=== PATIENT | male | born 1970 | race Caucasian/White ===

== ENCOUNTER 2017-11-22 12:10 | Emergency (ER) | payer OTHER ==
--- OUTSIDE RECORDS SUMMARY | 2017-11-22 12:16 | XMS REPORT ---
:1970 External Reference #:[id number] Author Organization [email or web address] Address [address] [place] [address] [place] [address] Phone [phone] Care Team Providers Name Role Phone Toney Carballo MD Primary Care Physician Unavailable Payers Type Date Identification Numbers Payment Provider Subscriber Commercial Policy Number: [id number] [facility] PayID: [id number] [address] [place] [address] Problems Date Description Provider Status Onset: 12/17/2015 Localized, primary osteoarthritis Kayleigh To MD Active Onset: 12/17/2015 Knee joint effusion Kayleigh To MD Active Family History Date Family Member(s) Problem(s) Comments General No Current Problems General Colitis Social History Type Date Description Comments Lives With Family ETOH Use Denies alcohol use Smoking Patient has never smoked Exercise Type/Frequency Exercises regularly General Hx 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 He is on his feet a lot at the lab and if he runs around a lot his knee gets stiff Allergies, Adverse Reactions, Alerts Date Description Reaction Status Severity Comments 06/30/2015 Penicillin rash active Medications Medication Date Status Form Strength Qnty SIG Indications Ordering Provider Diclofenac Active Tablets DR 75mg 60tabs take 1 by Kayleigh Sun 018 mouth MD Yousuf twice a day as needed for pain Celecoxib Active Capsules 100mg 60caps Take One Kayleigh 016 Capsule By MD Yousuf Mouth Twice A Day With Food Voltaren Active Gel 1% 200gm apply 2 M25.461 Kayleigh 016 grams MD Yousuf twice daily as needed for pain to the knee Omeprazole Active Capsules 20mg 1 by mouth Unknown 000 DR every day as needed Allergy Active Tablets prn Unknown Medication 000 Celecoxib Hx Capsules 200mg 60caps take 1 tab M25.461 Zaneb 016 - with food MD Yousuf twice a 016 day Doxycycline Hx Tablets 100mg 60tabs 1 tab by M25.461 Sage D. Hyclate 016 - mouth [place], twice a M.D. 016 day with food Keeley Hx Tablets 180mg 1 by mouth Unknown Allergy 000 - every day 016 Ibuprofen Hx Capsules 200mg as needed Unknown 000 - 016 Medrol (Rex) Hx Tablets 4mg as Unknown 000 - directed 016 Aleve Hx Capsules 220mg as needed Unknown 000 - 016 Zantac Hx Tablets 150mg 1 by mouth Unknown 000 - every day as needed 016 Celecoxib Hx Capsules 100mg 60caps Take One Ty 000 - Capsule By Nasrin, Mouth M.D. 016 Twice A Day With Food as Needed For Pain Medications Administered in Office Medication Date Status Form Strength Qnty SIG Indications Ordering Provider Injection 10/18/ Administered Injection Zaneb Hyaluronan Or 2017 MD Andres To, Euflexxa Per Dose Injection 10/11/ Administered Injection Zaneb Hyaluronan Or 2017 MD Yousuf Derivative, Euflexxa Per Dose Triamcinolone 08/28/ Administered Injection Zaneb (Kenalog) 2017 MD Yousuf Triamcinolone 07/03/ Administered Injection Zaneb (Kenalog) 2017 MD Yousuf Triamcinolone 08/12/ Administered Injection Zaneb (Kenalog) 2015 MD Yousuf Vital Signs Date Vital Result Comment 10/25/2017 Height 66 inches 5'6" Weight 137.00 lb BP Systolic 124 mmHg BP Diastolic 84 mmHg Respiratory Rate 18 /min Pain Level 0 BMI (Body Mass Index) 22.1 kg/m2 10/18/2017 Height 66 inches 5'6" Weight 137.00 lb BP Systolic 128 mmHg BP Diastolic 68 mmHg Respiratory Rate 18 /min Pain Level 0 BMI (Body Mass Index) 22.1 kg/m2 10/11/2017 Height 66 inches 5'6" Weight 137.00 lb Heart Rate 50 /min BP Systolic Sitting 96 mmHg BP Diastolic Sitting 70 mmHg Respiratory Rate 16 /min Pain Level 7 BMI (Body Mass Index) 22.1 kg/m2 08/28/2017 Height 66 inches 5'6" Weight 137.00 lb BP Systolic Sitting 130 mmHg BP Diastolic Sitting 70 mmHg Respiratory Rate 16 /min Body Temperature 97.3 F Pain Level 9 BMI (Body Mass Index) 22.1 kg/m2 07/03/2017 Height 66 inches 5'6" Weight 140.00 lb BP Systolic 118 mmHg BP Diastolic 70 mmHg Respiratory Rate 18 /min Pain Level 0 BMI (Body Mass Index) 22.6 kg/m2 12/17/2015 Height 66 inches 5'6" Weight 140.00 lb Respiratory Rate 16 /min Pain Level 6 BMI (Body Mass Index) 22.6 kg/m2 09/14/2015 Height 66 inches 5'6" Weight 140.00 lb Heart Rate 52 /min BP Systolic Sitting 110 mmHg BP Diastolic Sitting 68 mmHg Respiratory Rate 14 /min Body Temperature 97.4 F Pain Level 3 BMI (Body Mass Index) 22.6 kg/m2 08/19/2015 Height 66 inches 5'6" Weight 141.00 lb Heart Rate 54 /min BP Systolic Sitting 112 mmHg BP Diastolic Sitting 68 mmHg Body Temperature 97.6 F Pain Level 3 BMI (Body Mass Index) 22.8 kg/m2 08/13/2015 Height 66 inches 5'6" Weight 138.00 lb Heart Rate 60 /min BP Systolic Sitting 114 mmHg BP Diastolic Sitting 76 mmHg Respiratory Rate 16 /min Pain Level 9 with very specific movements BMI (Body Mass Index) 22.3 kg/m2 07/01/2015 Height 66 inches 5'6" Weight 138.00 lb Heart Rate 60 /min BP Systolic Sitting 110 mmHg BP Diastolic Sitting 64 mmHg Respiratory Rate 14 /min Body Temperature 97.6 F BMI (Body Mass Index) 22.3 kg/m2 Results Test Date Test Result H/L Range Note Laboratory test finding 08/28/2017 Mycobacterial Culture See Comment 1 , 2 Lyme Disease PCR 08/28/2017 Lyme Disease Source RIGHT KNEE 1 Tissue/Fluid B. burgdorferi PCR Negative Negative 1 B. mayonii PCR Negative Negative 1 B. garinii/B. afzellii PCR Negative Negative 1, 3 Laboratory test finding 08/28/2017 Anaerobic Culture SEE RESULT BELOW 1 , 4 Fungal Cult Other Sources SEE RESULT BELOW 1, 5 Body Fluid Cell Count 08/28/2017 Body Fluid Source Synovial Fluid 1 Body Fluid Appearance Cloudy 1 Body Fluid Color Yellow 1 Body Fluid Volume 2.0 mL 1 Body Fluid WBC 31359 /mcL 1, 6 Body Fluid RBC 2384 /mcL 1 Body Fluid Neutrophils 89 % 1 Body Fluid Lymph 7 % 1 Body Fluid [place] 4 % 1 Body Fluid Total Cells Counted 100 1 Body Fluid Comment (SEE NOTE) 1, 7 Fluid Reviewed By MD (SEE NOTE) 1, 8 Acid Fast Culture & 08/28/2017 Acid Fast Culture SEE RESULT 1, 9 Smear Smear BELOW Body Fluid C&S 08/28/2017 Body Fluid Cult SEE RESULT 1, 10 Gram Stain BELOW Laboratory test 08/28/2017 Body Fluid None Seen None Seen 1, 11 finding Crystals Laboratory test 08/19/2015 Creatine 259 U/L High 10-223 finding Kinase(CK) C Reactive Protein < 1.00 mg/L < 5.00 12 Cardiolipin Igg/Igm 08/19/2015 Phospholipid Ab IgM, S < 4.0 MPL 13 Phospholipid Ab IgG 4.7 GPL 14 Laboratory test finding 08/19/2015 Complement C3 122 mg/dL 75 - 175 15 Complement C4 36 mg/dL 14 - 40 16 Connective Tissue Panel 08/19/2015 Anti-Nuclear Antibody 1.4 U High 17 Cyclic Citrullinated Peptide <15.6 U 18 Interpretation See Comment 19 Comp Metabolic Panel 08/19/2015 Sodium 136 mmol/L 133-145 Potassium 3.9 mmol/L 3.5-5.0 Chloride 100 mmol/L Low 101-111 Co2 Carbon Dioxide 31 mmol/L 22-32 Anion Gap 5 mmol/L 2-11 Glucose 82 mg/dL 70-100 Blood Urea Nitrogen 15 mg/dL 6-24 Creatinine 0.93 mg/dL 0.67-1.17 BUN/Creatinine Ratio 16.1 8-20 Calcium 9.6 mg/dL 8.6-10.3 Total Protein 7.3 g/dL 6.4-8.9 Albumin 4.4 g/dL 3.2-5.2 Globulin 2.9 g/dL 2-4 Albumin/Globulin Ratio 1.5 1-3 Total Bilirubin 0.40 mg/dL 0.2-1.0 Alkaline Phosphatase 53 U/L 34-104 Alt 19 U/L 7-52 Ast 26 U/L 13-39 Egfr Non- 87.5 >60 Egfr 112.5 >60 20 Hla B27 08/19/2015 Hla B27 Positive 21 Hla B27 Interp See Comment 22 Lyme Western Blot 08/19/2015 Lyme Disease IgG Ab WB Negative Negative Lyme Disease IgG Bands Present p93, p66, p41, kDa Lyme Disease IgM Ab WB Negative Negative Lyme Disease IgM Bands Present No bands detecte <SEE NOTE> kDa 23 Lyme Disease Interpretation See Comment 24 Laboratory test finding 07/01/2015 Lyme Disease Serology Negative Negative 25 1 [id number] SOURCE: KNEE, RIGHT KNEE MYCOBACTERIAL CULTURE FINAL No growth after 42 days of incubation. Test Performed by: [facility] - [address] [address] 3 ADDITIONAL INFORMATION This test was developed and its performance characteristics determined by [facility] in a manner consistent with CLIA requirements. This test has not been cleared or approved by the U.S. Food and Drug Administration. Test Performed by: [facility] - [address] [address] 4 SEE RESULT BELOW Name: SEBASTIAN CASEY : [address]: Kayleigh To MD Acct: [id number] Unit: [id number] AGE: 47 Location: [facility] Re08/28/17 SEX: M Status: REG REF SPEC: [id number] INGE: 08/28/17-[address] [facility] [address]: Kayleigh To MD REQ: [id number] RECD: 08/28/17 STATUS: COMP _ SOURCE: BODY FLUID SPDESC:KNEE RIGHT ORDERED: Anaerobic Cult, AFB Cult Smear COMMENTS: [id number] Procedure Result Reported Site Anaerobic Culture Final 09/01/17- 1021 ML No Growth Day 4 Acid Fast Stain - Direct Final 08/28/17- 1428 ML AFB Smear Result No Acid Fast Bacillus Present (Negative) Preparation By Cytospin Smear Due to limited sensitivity of the smear, results should be used as an adjunct in evaluating the patient's status. This specimen has been sent to referral laboratory for mycobacterial culture. * ML - Main Lab . END OF REPORT DEPARTMENT OF PATHOLOGY, [address] [place] [address] Iker Zavala M.D. Director [facility] # [id number] 5 SEE RESULT BELOW Name: JACINTOSEBASTIAN : [address]: Kayleigh To MD Acct: [id number] Unit: [id number] AGE: 47 Location: [facility] Re08/28/17 SEX: M Status: REG REF SPEC: [id number] INGE: 08/28/17-[address] [facility] [address]: Kayleigh To MD REQ: [id number] RECD: 08/28/17 STATUS: COMP _ SOURCE: MISC SOURC SPDESC:KNEE RIGHT ORDERED: Fungal - Other COMMENTS: [id number] Procedure Result Reported Site Fungal Cult - Other Sources Final 09/24/17- 1349 ML No Growth Week 4 * ML - Main Lab . END OF REPORT DEPARTMENT OF PATHOLOGY, [address] [place] [address] Iker Zavala M.D. Director [facility] # [id number] 6 -- REFERENCE VALUE -- Synovial: <150/mcL Peritoneal: <500/mcL Pleural: <500/mcL Pericardial: <500/mcL 7 Differential performed from push smear 8 Acute inflammation present. Recommend correlation with microbiology studies. Reviewed by Dr. Zavala 9 SEE RESULT BELOW Name: JACINTOSEBASTIAN : [address]: Kayleigh To MD Acct: [id number] Unit: [id number] AGE: 47 Location: [facility] Re08/28/17 SEX: M Status: REG REF SPEC: [id number] INGE: 08/28/17-[address] [facility] [address]: Kayleigh To MD REQ: [id number] RECD: 08/28/17 STATUS: RES _ SOURCE: BODY FLUID SPDESC:KNEE RIGHT ORDERED: Anaerobic Cult, AFB Cult Smear COMMENTS: [id number] Procedure Result Reported Site Anaerobic Culture PENDING Acid Fast Stain - Direct Final 08/28/17- 1428 ML AFB Smear Result No Acid Fast Bacillus Present (Negative) Preparation By Cytospin Smear Due to limited sensitivity of the smear, results should be used as an adjunct in evaluating the patient's status. This specimen has been sent to referral laboratory for mycobacterial culture. * ML - Main Lab . END OF REPORT DEPARTMENT OF PATHOLOGY, [address] [place] [address] Iker Zavala M.D. Director [facility] # [id number] 10 SEE RESULT BELOW Name: JACINTOSEBASTIAN : [address]: Kayleigh To MD Acct: [id number] Unit: [id number] AGE: 47 Location: [facility] Re08/28/17 SEX: M Status: REG REF SPEC: [id number] IGNE: 08/28/17-[address]: Kayleigh To MD REQ: [id number] RECD: 08/28/17 STATUS: COMP _ SOURCE: JOINT FLUI SPDESC:KNEE RIGHT ORDERED: BF Cult/GS, MRSA/SA SSTI COMMENTS: [id number] Procedure Result Reported Site Body Fluid Gram Stain Final 08/28/17- 1339 ML 4+ Neutrophils No Organisms Seen Preparation By Cytospin Smear Body Fluid Culture Final 09/01/17- 1022 ML No Growth Day 4 MRSA/S. aureus SSTI PCR Final 08/28/17- 1450 ML Organism 1 MRSA NEGATIVE Organism 2 S.AUREUS NEGATIVE * ML - Main Lab . END OF REPORT DEPARTMENT OF PATHOLOGY, [address] [place] [address] Iker Zavala M.D. Director [facility] # [id number] 11 [id number] What is the body fluid source?: Synovial (Joint) Fluid 12 Acute inflammation: >10.00 13 REFERENCE VALUE <10.0 (Negative) 14 REFERENCE VALUE <10.0 (Negative) Test Performed by: [facility] [place] [address] Environmental Science Professor: Augusto Valentine II, M.D., Ph.D. 15 Test Performed by: [facility] [place] [address] Environmental Science Professor: Augusto Valentine II, M.D., Ph.D. 16 Test Performed by: [facility] [place] [address] Environmental Science Professor: Augusto Valentine II, M.D., Ph.D. 17 Interpretation: Weak Positive (1.1-2.9) REFERENCE VALUE <=1.0 (Negative) 18 REFERENCE VALUE <20.0 (Negative) 19 Tests for antibodies to dsDNA and [place] antigens are not performed automatically unless the TAMERA result is > or= 3.0 U. Studies performed at [facility] indicate that positive TAMERA results <3.0 U are rarely accompanied by positive second order tests. Test Performed by: [facility] [place] [address] Environmental Science Professor: Augusto Valentine II, M.D., Ph.D. 20 Because ethnic data is not always readily available, this report includes an eGFR for both -Americans and non- Americans. The National Kidney Disease Education Program (NKDEP) does not endorse the use of the MDRD equation for patients that are not between the ages of 18 and 70, are , have extremes of body size, muscle mass, or nutritional status, or are non- or non-. According to the National Kidney Foundation, irrespective of diagnosis, the stage of the disease is based on the level of kidney function: Stage Description GFR(mL/min/1.73 m(2)) 1 Kidney damage with normal or decreased GFR 90 2 Kidney damage with mild decrease in GFR 60-89 3 Moderate decrease in GFR 30-59 4 Severe decrease in GFR 15-29 5 Kidney failure <15 (or dialysis) 21 REFERENCE VALUE Not Applicable 22 HLA-B27 antigen was detected. Approximately 8% of the normal population carries the HLA-B27 antigen. HLA-B27 is present in approximately 89% of patients with ankylosing spondylitis, 79% of patients with Jennifer's syndrome and 42% of patients with juvenile rheumatoid arthritis. However, lacking other data, it is not diagnostic for these disorders. This test does not differentiate B27 alleles. i.e. B*27:05, B*27:06, etc. ADDITIONAL INFORMATION Method: Flow Cytometry Performing Laboratory CLIA# [id number] Test Performed by: [place] [address] Environmental Science Professor: Augusto Valentine II, M.D., Ph.D. 23 No bands detected 24 Specific serologic response to B. burgdorferi infection is not detected, but cannot rule out early infection during which low or undetectable antibody levels to B. burgdorferi may be present. If clinically indicated, a new serum specimen should be submitted in 7-14 days. ADDITIONAL INFORMATION CDC criteria require >=5 bands for IgG or >=2 bands for IgM for the Immunoblot to be considered positive. Bands (e.g.,p41) may be detected in patients without Lyme disease, and patterns not meeting the CDC criteria should be interpreted with caution. Immunoblot should be ordered only on specimens that are positive or equivocal by a FDA-licensed Lyme disease antibody screening test (e.g., EIA). Test Performed by: [place] [address] Environmental Science Professor: Augusto Valentine II, M.D., Ph.D. 25 Serologic response to B. burgdorferi infection is not detected, but cannot rule out early infection during which low or undetectable antibody levels to B. burgdorferi may be present. If clinically indicated, a new serum specimen should be submitted in 7-14 days. Test Performed by: [place] [address] Environmental Science Professor: Augusto Valentine II, M.D., Ph.D. Procedures Date CPT Code Description Status 10/18/2017 Inj/Aspir Major JT Or Bursa W/ US Completed 10/11/2017 Inj/Aspir Major JT Or Bursa W/ US Completed 08/28/2017 Inject/Drain Joint/Bursa Major W/O US Completed 07/03/2017 Inject/Drain Joint/Bursa Major W/O US Completed 08/13/2015 Inject/Drain Joint/Bursa Major W/O US Completed Encounters Type Date Location Provider CPT E/M Dx Office Visit 08/28/2017 8:15a [facility] [place] [address] M17.11 C.M.A. M25.461 Office Visit 07/03/2017 3:30p [facility] [place] [address] M17.11 C.M.A. M25.461 Office Visit 12/17/2015 8:00a [facility] [address] M25.461 C.M.A. M17.11 M22.8x1 Office Visit 09/14/2015 4:00p [facility] [place] [address] M25.461 Of Evgeny Bowen Z79.1 R76.0 M46.90 Office Visit 08/19/2015 3:00p [facility] [place] [address] M25.461 Of Evgeny Bowen M22.41 R76.0 Z79.1 Office Visit 08/13/2015 10:00[place] [facility] [place] [address] M22.41 C.M.A. M17.11 Office Visit 07/01/2015 2:00p [facility] Sage Montalvo [address] M25.461 Infectious Diseases Alison Ryan. Plan of Care 10/18/2017 - Kayleigh To MDM17.11 Unilateral primary osteoarthritis, right kneeNew Xrays:Inj/Aspir Major JT Or Bursa W/ USFollow up:Follow up: 1 weekM25.461 Effusion, right knee
[2017-11-22 12:19] VITALS: BP 128/81
--- NOTE | 2017-11-22 12:20 | UC ---
Head Injury HPI - HPI Summary HPI Summary: 47 yo male presents with feeling "foggy". He tells me that yesterday morning around 1030 or 11 he was at work, a desk job, when he suddenly began to feel "confused". He tells me that he knew it was 11/21/17, but tried to write the date and wrote 11/17/17. Then he tried to correct himself and wrote 11/22/17. He began talking with his coworkers and felt "sluggish" and that he could think of the words he wanted to say, but could not say them. These symptoms lasted about a half hour and eventually improved. During this time he denies having a headache , dizziness, blurry vision, slurred speech, weakness, trouble moving limbs, SOB , or chest pain. Today he went to work and spoke to his boss who mentioned that pt might have had a "TIA" and advised him to be evaluated - prompting his visit to the . Today he tells me that he feels overall "foggy" and just "not right" , but has had no more episodes as above and continues to not have a headache, dizziness, blurry vision, weakness, trouble moving limbs, SOB, or chest pain. He took an 81mg aspirin this morning. He has no PMHx and says that he runs for at least an hour daily. Does have a fam hx of CVA and cardiac dz. - History Of Current Complaint Chief Complaint: UCGeneralIllness Stated Complaint: CONFUSION Hx Obtained From: Patient Onset/Duration: Sudden Onset Severity Currently: None Pain Intensity: 0 - Allergies/Home Medications Allergies/Adverse Reactions: Allergies Allergy/AdvReac Type Severity Reaction Status Date / Time No Known Allergies Allergy Verified 11/22/17 12:20 Home Medications: Home Medications celeCOXIB CAP* [Celebrex CAP*] 1 tab PO BID 11/22/17 [History Confirmed 11/22/17 ] PMH/Surg Hx/FS Hx/Imm Hx - Additional Past Medical History Additional PMH: None - Surgical History Surgical History: Yes Surgery Procedure, Year, and Place: rtshoulder ARTHROSCOPY. tonsils, rt wrist TENDON REPAIR - Family History Known Family History: Positive: Cardiac Disease, Hypertension, Other - CVA - Social History Occupation: Employed Full-time Lives: With Family Alcohol Use: None Substance Use Type: None Smoking Status (MU): Never Smoked Tobacco Review of Systems Constitutional: Negative Skin: Negative Eyes: Negative ENT: Negative Respiratory: Negative Cardiovascular: Negative Gastrointestinal: Negative Genitourinary: Negative Neurovascular: Negative Musculoskeletal: Negative Neurological: Other - Confusion. Fogginess. Aphasia Psychological: Negative All Other Systems Reviewed And Are Negative: Yes Physical Exam - Summary Physical Exam Summary: GENERAL: NAD. WDWN. No pain distress. SKIN: No rashes, sores, ulcers, masses, lesions. No clubbing or cyanosis. HEENT: Head: AT/NC Eyes: PERRLA. EOM intact. Conjunctiva clear without inflammation or discharge. Ears: Hearing grossly normal. TMs intact, no bulging, erythema, or edema. Nose: Nasal mucosa pink and moist. NTTP maxillary and frontal sinus. Throat: Posterior oropharynx without exudates, erythema, or tonsillar enlargement. Uvula midline. NECK: Supple. Nontender. No lymphadenopathy. CHEST: CTAB. No r/r/w. No accessory muscle use. Breathing comfortably and in no distress. CV: RRR. Without m/r/g. Pulses intact. Brisk cap refill. MSK: FROM in B/L UEs and LEs with symmetric strength. NEURO: A&Ox3. 3 word recall, remote, recent memory, ability to follow 2-step directions, and attention intact. CN: II: Peripheral haywood intact. Vision normal. III, IV, : EOMI. No nystagmus. PERRLA. V: Sensations intact and symmetric. Opens mouth and clenches teeth. VII: No facial asymmetry. Forehead wrinkles. Grins, shuts eyes, frowns, puffs cheeks. VIII: Hearing intact to finger rub. IX, X: Swallows and coughs. Uvula midline. XI: Shrugs shoulders. Turns head against resistance. XII: No tongue deviation. Tmarlq-lo-tbkl are intact. Gait with normal base. Romberg: maintains balance, no pronator drift. Normal speech. No facial drooping. PSYCH: Age appropriate behavior. Triage Information Reviewed: Yes Vital Signs: Initial Vital Signs Temp 98 F 11/22/17 12:15 Pulse 55 11/22/17 12:15 Resp 16 11/22/17 12:15 BP 128/81 11/22/17 12:15 Pulse Ox 100 11/22/17 12:15 Vital Signs Reviewed: Yes Head Injury Course/Dx - Course Course Of Treatment: It is possible that the pt experienced a TIA, but given that he is having some lasting "fogginess" and his family hx of CVA - I had advised him to be further evaluated in the ED for a more appropriate work up. He declined ambulance transfer and will drive himself. - Differential Dx/Diagnosis Provider Diagnoses: Altered Mental Status Discharge - Sign-Out/Discharge Documenting (check all that apply): Patient Departure All imaging exams completed and their final reports reviewed: No Studies - Discharge Plan Condition: Stable Disposition: HOME-RECOMMEND TO ED Referrals: Toney Carballo MD [Primary Care Provider] - Additional Instructions: Please go to the ER for further evaluation of your confusion and altered mental status that occurred yesterday - Billing Disposition and Condition Condition: STABLE Disposition: Home-Recommend to ED
== END 2017-11-22 12:39 | disposition home health service (06) ==
LOC: UCEAST 12:10
DX: R41.82 Altered mental status, unspecified (principal)
CPT/HCPCS: 99212; G0463

== ENCOUNTER → 2017-11-22 13:03 | Emergency (ER) | payer BC, OTHER ==
--- NOTE | 2017-11-22 16:45 | ED ---
Altered Mental Status - HPI Summary HPI Summary: This patient is a 47 year old M presenting to [facility] with a chief complaint of an AMS since 1100 yesterday. Pt states that yesterday while at work he began having some confusion, trouble answering questions, and states that he was thinking something but his hand was writing something else. He was sent home and slept for 3 hours, when he woke up he felt better but foggy, and he continued the rest of his night normally. When he woke up this morning he has a BIRD which is unusual for him, he also felt mentally foggy, and when he arrived at work they suggested he come to the ED. The patient rates the pain 0/10 in severity. Patient reports dizziness, recent stress in his life, trouble concentrating, and some visual disturbances. Patient denies trouble speaking and unsteady gait. Pt states that for the last month he has minor memory lapses. - History Of Current Complaint Chief Complaint: EDAltMentalStatus Stated Complaint: "FOGGY" FEELING Time Seen by Provider: 11/22/17 16:34 Hx Obtained From: Patient Onset/Duration: Still Present, Suddenly Timing: Constant, Intermittent Severity Initially: Moderate Severity Currently: Mild Character: Confusion - Allergies/Home Medications Allergies/Adverse Reactions: Allergies Allergy/AdvReac Type Severity Reaction Status Date / Time No Known Allergies Allergy Verified 11/22/17 12:20 Home Medications: Home Medications Omeprazole CAP* [Prilosec CAP* 20 MG] 20 mg PO DAILY 11/22/17 [History Confirmed 11/22/17] PMH/Surg Hx/FS Hx/Imm Hx Endocrine/Hematology History: Denies: Hx Diabetes, Hx Thyroid Disease Cardiovascular History: Denies: Hx Hypercholesterolemia, Hx Hypertension, Hx Pacemaker/ICD, Hx Peripheral Vascular Disease Respiratory History: Denies: Hx Asthma History: Denies: Hx Renal Disease Musculoskeletal History: Denies: Hx Arthritis, Hx Osteoporosis Sensory History: Denies: Hx Cataracts, Hx Contacts or Glasses, Hx Glaucoma, Hx Hearing Aid Opthamlomology History: Denies: Hx Cataracts, Hx Contacts or Glasses, Hx Glaucoma Neurological History: Denies: Hx Headaches, Hx Seizures, Hx Transient Ischemic Attacks (TIA) Psychiatric History: Denies: Hx Anxiety, Hx Depression, Hx Panic Disorder - Surgical History Surgery Procedure, Year, and Place: rtshoulder ARTHROSCOPY. tonsils, rt wrist TENDON REPAIR Infectious Disease History: No Infectious Disease History: Denies: Traveled Outside the [place] in Last 30 Days - Family History Known Family History: Positive: Cardiac Disease, Other - CVA - Social History Occupation: Employed Full-time Alcohol Use: None Substance Use Type: Reports: None Smoking Status (MU): Never Smoked Tobacco Review of Systems Positive: Other - visual disturbances Neurological: Other - dizziness, mental fogginess, trouble concentrating, confusion, Positive: Headache Positive: Other - stress All Other Systems Reviewed And Are Negative: Yes Physical Exam - Summary Physical Exam Summary: Appearance: Well-appearing, Well-nourished, lying in bed comfortably Skin: Warm, dry, no obvious rash Eyes: sclera anicteric, no conjunctival pallor ENT: mucous membranes moist, pharynx appears normal Neck: Supple, nontender Respiratory: Clear to auscultation, no signs of respiratory distress Cardiovascular: Normal S1, S2. No murmurs. Normal distal pulses in tibial and radial bilaterally. Abdomen: Soft, nontender, normal active bowel sounds present Musculoskeletal: Normal, Strength/ROM Intact Neurological: A&Ox3, awake and alert, mentation is normal, speech is fluent and appropriate Psychiatric: affect is normal, does not appear anxious or depressed GCS: 15 Triage Information Reviewed: Yes Vital Signs On Initial Exam: Initial Vitals Temp Pulse Resp BP Pulse Ox 97.7 F 55 17 112/77 99 11/22/17 13:21 11/22/17 13:21 11/22/17 13:21 11/22/17 13:21 11/22/17 13:21 Vital Signs Reviewed: Yes Diagnostics - Vital Signs Vital Signs Temp Pulse Resp BP Pulse Ox 11/22/17 13:21 97.7 F 55 17 112/77 99 - Laboratory Result Diagrams: 11/22/17 17:01 11/22/17 17:01 Lab Statement: Any lab studies that have been ordered have been reviewed, and results considered in the medical decision making process. - Radiology MRI Brain Radiology Interpretation Completed By: Radiologist - 1. No MR evidence of acute infarct. 2. Nonspecific T2/flair hyperintensities within the parietal and to a lesser degree the frontal periventricular white matter, as well as the bifrontal superior subcortical white matter and anterior right temporal subcortical white matter. Differential includes but is not limited to chronic small vessel ischemic change, demyelinating disease, and CADASIL. Consider further evaluation with post contrast MR sequences. 3. Partial opacification of right mastoid air cells. ED physician has reviewed this radiology report. - CT CT Brain CT Interpretation Completed By: Radiologist - Focus of hypoattenuation in the periventricular white matter adjacent to the lateral aspect of the right posterior ventricle could be due to microvascular disease or potentially a more acute focal infarction. If the patient is exhibiting focal neurologic deficits superior characterization can be made with an MRI of the brain. ED physician has reviewed this radiology report. - EKG 1734 Cardiac Rate: NL EKG Rhythm: Sinus Bradycardia - sinus bradycardia at 46 BPM, P waves, QRS complex, and T waves are within normal limits, T waves and intervals are normal , no ischemic changes. This is a normal EKG Altered Mental Statu Course/Dx - Course Assessment/Plan: This patient is a 47 year old M presenting to [facility] with a chief complaint of an AMS since 1100 yesterday. Pt states that yesterday while at work he began having some confusion, trouble answering questions, and states that he was thinking something but his hand was writing something else. He was sent home and slept for 3 hours, when he woke up he felt better but foggy, and he continued the rest of his night normally. When he woke up this morning he has a BIRD which is unusual for him, he also felt mentally foggy, and when he arrived at work they suggested he come to the ED. The patient rates the pain 0/ 10 in severity. Patient reports dizziness, recent stress in his life, trouble concentrating, and some visual disturbances. Patient denies trouble speaking and unsteady gait. Pt states that for the last month he has minor memory lapses. An EKG reveals sinus bradycardia at 46 BPM, P waves, QRS complex, and T waves are within normal limits, T waves and intervals are normal, no ischemic changes. This is a normal EKG. . CT Brain reveals, per radiologist, Focus of hypoattenuation in the periventricular white matter adjacent to the. lateral aspect of the right posterior ventricle could be due to microvascular disease or. potentially a more acute focal infarction. If the patient is exhibiting focal neurologic. deficits superior characterization can be made with an MRI of the brain. MRI Brain reveals, 1. No MR evidence of acute infarct. 2. Nonspecific T2/flair hyperintensities within the parietal and to a lesser. degree the frontal periventricular white matter, as well as the bifrontal. superior subcortical white matter and anterior right temporal subcortical white. matter. Differential includes but is not limited to chronic small vessel. ischemic change, demyelinating disease, and CADASIL. Consider further. evaluation with post contrast MR sequences. 3. Partial opacification of right mastoid air cells. Blood work obtained. We discussed patient care with Dr. Garcia and they recommended that the patient follow up as outpatient with neurology. Patient will be discharged. The patient is agreeable with this plan. - Diagnoses Provider Diagnoses: Weakness - Provider Notifications Discussed Care Of Patient With: Steven Garcia Time Discussed With Above Provider: 20:01 Instructed by Provider To: Other - We discussed patient care with Dr. Garcia and they recommended that the patient follow up as outpatient with neurology. Discharge - Sign-Out/Discharge Documenting (check all that apply): Patient Departure - Discharge Plan Condition: Good Disposition: HOME Referrals: Steven Garcia MD [Medical Doctor] - Additional Instructions: The MRI scan did exclude a stroke as a cause of your symptoms, but there are some subtle abnormalities on the MRI that can be seen in a number of different conditions. I spoke to Dr. Newton, our neurologist [facility], and he would like to see you in the office to examine you himself and plan further testing to get to a formal diagnosis. In the meantime I would not put any restrictions on your activity. If you develop new or worsening symptoms, we should see you back here sooner. - Billing Disposition and Condition Condition: GOOD Disposition: Home - Attestation Statements Document Initiated by Pattie: Yes Documenting Scribe: Chava Lyn Provider For Whom Pattie is Documenting (Include Credential): Valeriano Boyce MD Scribe Attestation: Chava Costello , scribed for Valeriano Boyce MD on 11/23/17 at 0852. Scribe Documentation Reviewed: Yes Provider Attestation: The documentation as recorded by the Chava florentino accurately reflects the service I personally performed and the decisions made by me, Valeriano Boyce MD
[2017-11-22 17:28] LABS: ABS Basophils 0 10^3/ul (0-0.2); ABS Eosinophils 0.1 10^3/ul (0-0.6); ABS Lymphocytes 2.1 10^3/ul (1.0-4.8); ABS Monocytes 0.4 10^3/ul (0-0.8); ABS Neutrophils 2.4 10^3/ul (1.5-7.7); ABS Nucleated RBC 0 10^3/ul; Eosinophil % 1.5 % (0-6); Hematocrit 45 % (42-52); Lymphocyte % 42.2 % (25-47); Mean Corpuscular HGB Conc 34 g/dl (31-36); Mean Corpuscular Hemoglobin 30 pg (27-31); Mean Corpuscular Volume 89 fL (80-94); Mean Platelet Volume 7.5 um3 (7.4-10.4); Nucleated Red Blood Cells % 0.3; Platelet Count 226 10^3/ul (150-450); Red Blood Count 5.02 10^6/ul (4.00-5.40); Red Cell Distribution Width 14 % (10.5-15); White Blood Count 5.1 10^3/ul (3.5-10.8)
--- NOTE | 2017-11-22 17:31 | RAD ---
INDICATION: "Foggy feeling" COMPARISON: None. TECHNIQUE: Contiguous axial sections of the brain were obtained from the skull base to the vertex without contrast. FINDINGS: The ventricles, cisterns and sulci are within normal limits. Adjacent to the posterior right ventricle (axial image 19 and coronal image 39) there is a focus of white matter periventricular hypoattenuation. Otherwise the robbins-white matter differentiation is adequately maintained and there is no sulcal effacement. No significant focal abnormality or mass effect is present. There is no evidence for intracranial hemorrhage. No significant focal osseous abnormality is present. The visualized portion of the paranasal sinuses appear clear. The mastoid air cells are well aerated bilaterally. IMPRESSION: Focus of hypoattenuation in the periventricular white matter adjacent to the lateral aspect of the right posterior ventricle could be due to microvascular disease or potentially a more acute focal infarction. If the patient is exhibiting focal neurologic deficits superior characterization can be made with an MRI of the brain.
[2017-11-22 17:37] LABS: INR 0.88 (0.77-1.02)
[2017-11-22 17:44] LABS: EGFR Non-African American 82.6 (>60)
--- NOTE | 2017-11-22 19:01 | RAD ---
EXAM: MR Head Without Intravenous Contrast CLINICAL HISTORY: 47 years old, male; Pain and signs and symptoms; Other: Lethargic, feeling of "fogginess"; Headache; Headache not specified; Patient HX: C/O fogginess, headache & lethargy w/ some memory problems; Additional info: Trouble concentrating, abnl CT brain TECHNIQUE: Magnetic resonance images of the head/brain without intravenous contrast in multiple planes. COMPARISON: No relevant prior studies available. FINDINGS: Brain: Focal nonspecific T2/FLAIR hyperintensities of the parietal and to a lesser degree the frontal periventricular white matter, as well as the bifrontal superior subcortical white matter, and anterior right temporal subcortical white matter. No intracranial hemorrhage or extra-axial fluid collection. No evidence of mass effect or midline shift. No restricted diffusion to suggest acute infarct. Ventricles: Prominence of the ventricles and sulci, most likely attributed to parenchymal volume loss. Bones/joints: Unremarkable. Sinuses: Unremarkable as visualized. No acute sinusitis. Mastoid air cells: Partial opacification of right mastoid air cells. Orbits: Unremarkable as visualized. IMPRESSION: 1. No MR evidence of acute infarct. 2. Nonspecific T2/flair hyperintensities within the parietal and to a lesser degree the frontal periventricular white matter, as well as the bifrontal superior subcortical white matter and anterior right temporal subcortical white matter. Differential includes but is not limited to chronic small vessel ischemic change, demyelinating disease, and CADASIL. Consider further evaluation with post contrast MR sequences. 3. Partial opacification of right mastoid air cells.
[2017-11-22 20:35] VITALS: BP 124/74
[2017-11-22 20:40] LABS: Urine Appearance Clear; Urine Blood Negative (Negative); Urine Color Straw; Urine Ketones Negative (Negative); Urine Protein Negative (Negative); Urine Specific Gravity 1.006 (1.010-1.030); Urine Urobilinogen Negative (Negative)
== END | disposition home or self-care (01) ==
LOC: ED 13:03
DX: R53.1 Weakness (principal); R42 Dizziness and giddiness; R41.0 Disorientation, unspecified
CPT/HCPCS: 36415; 70450; 70551; 80053; 81003; 83605; 84484; 85025; 85610; 93005; 99282